=== PATIENT | female | born 1985 | race Caucasian/White ===

== ENCOUNTER 2021-10-18 19:05 | Emergency (ER) | payer OTHER, SELFPAY ==
[2021-10-18 19:10] VITALS: BP 133/85; PULSE 130; RESP 24; TEMP 36.7; O2SAT 100; BMI 15.3
--- NOTE | 2021-10-18 19:21 | EKG12_ITS ---
Test Reason : SEIZURE Blood Pressure : / mmHG Vent. Rate : 084 BPM Atrial Rate : 084 BPM P-R Int : 138 ms QRS Dur : 100 ms QT Int : 372 ms P-R-T Axes : 075 058 075 degrees QTc Int : 439 ms Normal sinus rhythm Low voltage QRS Borderline ECG Confirmed by RIKI LARRY, SHERRY ([id number]), advertising editor ALAN MEIER ([id number]) on 10/21/2021 11:17:08 A M Referred By: JARROD Confirmed By:JEAN-CLAUDE LYN MD
--- NOTE | 2021-10-18 19:26 | EX.ED.DYSGE1 ---
HPI <ARTHUR Chavez - Last Filed: 10/18/21 22:21> History of Present Illness Chief Complaint: Confusion Narrative Narrative: 35-year-old [place] female presents with altered mental status. Her family member states she has had gallbladder and liver problems for the last 2 years. She has been jaundiced intermittently since then and is less yellow right now than previously. Her family thinks it was because she was on some medication that caused damage to her liver. This week she was doing a detox at [facility]. Her caregiver/health health care coach there states when she arrived she was only 85 pounds and she has lost a few pounds this week. She has been taking essential oils and a bunch of supplements. She complained of palpitations last evening and they checked her heart rate and it was 90. Today she seemed fine until around 5 PM when she states she felt lightheaded. She then laid down in bed and became acutely very confused and was rambling and would not answer questions appropriately. [facility] <ARTHUR Chavez - Last Filed: 10/18/21 22:21> [facility] Medical History (Updated 10/18/21 @ 22:29 by ARTHUR Chavez) Anemia Anemia Gall stone Home Medications NK 10/18/21 [History Last Taken Unknown] Allergy/AdvReac Type Severity Reaction Status Date / Time No Known Allergies Allergy Verified 10/18/21 19:36 Social History Smoking Status: Never smoker ROS <ARTHUR Chavez - Last Filed: 10/18/21 22:21> ROS ED ROS Narrative Constitutional: Negative for fever, chills, malaise. Eyes: Negative for visual change. ENT: Negative for sore throat, ear pain, rhinorrhea. CVS: Positive for palpitations. Negative for chest pain, syncope. Respiratory: Negative for shortness of breath, cough, orthopnea. GI: Negative for abdominal pain, nausea, vomiting, diarrhea. : Negative for dysuria. Neuro: Negative for headache, motor/sensory dysfunction. Skin: Negative for rash, abscess, or wound. Musc: Negative for joint pain, swelling, trauma. Heme: Negative for easy bruising, bleeding, lymphadenopathy. EXAM <ARTHUR Chavez - Last Filed: 10/18/21 22:21> Physical Exam Narrative Exam Narrative: CONST: Patient sitting up in bed, keenly alert and agitated. EYES: Pupils 6 mm and equal bilaterally, reactive to light, EOMI. No scleral icterus. ENT: Normal inspection, dry mucous membranes. NECK: Normal inspection. RESP: No respiratory distress, CTAB. CVS: Regular rate and rhythm, no murmur, no gallop. ABD: Soft and nontender, no guarding or rebound, nondistended, no hepatosplenomegaly. SKIN: Jaundiced. EXTREMITIES: Normal appearance, no pedal edema. NEURO: Oriented to self, will not answer other orientation questions although occasionally responds appropriately to the conversation. PSYCH: Normal affect. Const Vital Signs: 10/18/21 19:10 10/18/21 20:05 10/18/21 21:00 Temperature 98.1 F Temperature Source Temporal Pulse Rate 130 H 87 100 Respiratory Rate 24 H 17 16 Blood Pressure 133/85 H 116/71 116/62 Blood Pressure Mean 101 86 80 Pulse Ox 100 99 100 Oxygen Delivery Method Room Air Room Air Room Air 10/18/21 21:48 10/18/21 22:23 Temperature Temperature Source Pulse Rate 81 88 Respiratory Rate 20 H 22 H Blood Pressure 125/87 H 119/78 Blood Pressure Mean 99 Pulse Ox 100 98 Oxygen Delivery Method Room Air <Flex Rea MD - Last Filed: 10/18/21 22:43> Physical Exam Const Vital Signs: 10/18/21 19:10 10/18/21 20:05 10/18/21 21:00 Temperature 98.1 F Temperature Source Temporal Pulse Rate 130 H 87 100 Respiratory Rate 24 H 17 16 Blood Pressure 133/85 H 116/71 116/62 Blood Pressure Mean 101 86 80 Pulse Ox 100 99 100 Oxygen Delivery Method Room Air Room Air Room Air 10/18/21 21:48 10/18/21 22:23 Temperature Temperature Source Pulse Rate 81 88 Respiratory Rate 20 H 22 H Blood Pressure 125/87 H 119/78 Blood Pressure Mean 99 Pulse Ox 100 98 Oxygen Delivery Method Room Air MDM <ARTHUR Chavez - Last Filed: 10/18/21 22:21> [place] MDM Narrative Medical decision making narrative: Patient has been doing a homeopathic detox and presents with altered mental status. She is awake and alert and oriented to self but is otherwise confused. She was tachycardic in the 130s, otherwise normal vital signs. He appears dehydrated with dry mucous membranes. Heart is rapid but regular. Lungs clear. Abdomen soft and nontender. She is not answering appropriately is consistently talking in a episcopal theme. Labs are unremarkable including LFTs and ammonia. UA is negative for infection. Urine drug screen is positive for THC which is consistent with the CBD she was using. Alcohol level is negative. CT brain shows no acute process. Patient was given IV fluids and heart rate improved to the 80s. She does seem improved and is able to sit calmly in bed and talk appropriately. We had a long discussion with the patient and her sister about how there was no medical issue found but we can pursue a psychiatric evaluation as this may be a mental health issue. The family discussed and declined. They feel comfortable taking her back to the wellness retreat. I recommended they do not continue the supplementation and she needs to increase her fluids. They state they will have a rest there few days and then had home to [place]. She was counseled to return for new or worsening issues and was discharged in stable condition. Diagnoses 1. Altered mental status 2. Dehydration Lab Data Labs: Laboratory Results - last 24 hr 10/18/21 10/18/21 10/18/21 19:22 19:22 19:22 WBC 6.1 RBC 4.01 L Hgb 13.1 Hct 39.2 MCV 97.8 MCH 32.7 H MCHC 33.4 RDW Std Deviation 46.0 H RDW Coeff of Ashlie 12.9 Plt Count 264 MPV 10.4 Immature Gran % (Auto) 0.500 Neut % (Auto) 54.4 Lymph % (Auto) 35.2 [place] % (Auto) 8.3 Eos % (Auto) 1.3 Baso % (Auto) 0.3 Absolute Neuts (auto) 3.3 Absolute Lymphs (auto) 2.16 Nucleated RBC % 0 PT 12.0 INR 0.9 Sodium 140 Potassium 3.7 Chloride 105 Carbon Dioxide 27.0 Anion Gap 8 BUN 16 Creatinine 1.08 H Estim Creat Clear Calc 45.67 Est GFR (MDRD) Af Amer 74 Est GFR (MDRD) Non-Af 61 BUN/Creatinine Ratio 14.8 Glucose 160 H Lactic Acid Calcium 9.1 Total Bilirubin 0.50 Direct Bilirubin 0.12 AST 25 ALT 30 Alkaline Phosphatase 49 Ammonia Total Protein 7.5 Albumin 4.0 Globulin 3.5 Urine Color Urine Clarity Urine pH Ur Specific [place] Urine Protein Urine Glucose (UA) Urine Ketones Urine Occult Blood Urine Nitrite Urine Bilirubin Urine Urobilinogen Ur Leukocyte Esterase Urine RBC Urine WBC Ur Squamous Epith Cells Urine Bacteria Urine Mucus Urine Opiates Screen Urine Methadone Screen Ur Barbiturates Screen Ur Phencyclidine Scrn Ur Amphetamines Screen MDMA (Ecstasy) Screen U Benzodiazepines Scrn Urine Cocaine Screen U Cannabinoids Screen Ur Drug Screen Comment Ethyl Alcohol 10/18/21 10/18/21 10/18/21 19:22 19:22 20:30 WBC RBC Hgb Hct MCV MCH MCHC RDW Std Deviation RDW Coeff of Ashlie Plt Count MPV Immature Gran % (Auto) Neut % (Auto) Lymph % (Auto) [place] % (Auto) Eos % (Auto) Baso % (Auto) Absolute Neuts (auto) Absolute Lymphs (auto) Nucleated RBC % PT INR Sodium Potassium Chloride Carbon Dioxide Anion Gap BUN Creatinine Estim Creat Clear Calc Est GFR (MDRD) Af Amer Est GFR (MDRD) Non-Af BUN/Creatinine Ratio Glucose Lactic Acid 0.6 Calcium Total Bilirubin Direct Bilirubin AST ALT Alkaline Phosphatase Ammonia 13.0 Total Protein Albumin Globulin Urine Color Urine Clarity Urine pH Ur Specific [place] Urine Protein Urine Glucose (UA) Urine Ketones Urine Occult Blood Urine Nitrite Urine Bilirubin Urine Urobilinogen Ur Leukocyte Esterase Urine RBC Urine WBC Ur Squamous Epith Cells Urine Bacteria Urine Mucus Urine Opiates Screen Urine Methadone Screen Ur Barbiturates Screen Ur Phencyclidine Scrn Ur Amphetamines Screen MDMA (Ecstasy) Screen U Benzodiazepines Scrn Urine Cocaine Screen U Cannabinoids Screen Ur Drug Screen Comment Ethyl Alcohol < 3.0 10/18/21 10/18/21 20:55 20:55 WBC RBC Hgb Hct MCV MCH MCHC RDW Std Deviation RDW Coeff of Ashlie Plt Count MPV Immature Gran % (Auto) Neut % (Auto) Lymph % (Auto) [place] % (Auto) Eos % (Auto) Baso % (Auto) Absolute Neuts (auto) Absolute Lymphs (auto) Nucleated RBC % PT INR Sodium Potassium Chloride Carbon Dioxide Anion Gap BUN Creatinine Estim Creat Clear Calc Est GFR (MDRD) Af Amer Est GFR (MDRD) Non-Af BUN/Creatinine Ratio Glucose Lactic Acid Calcium Total Bilirubin Direct Bilirubin AST ALT Alkaline Phosphatase Ammonia Total Protein Albumin Globulin Urine Color Yellow Urine Clarity Clear Urine pH 7.0 Ur Specific [place] 1.010 Urine Protein Negative Urine Glucose (UA) Normal Urine Ketones Negative Urine Occult Blood Negative Urine Nitrite Negative Urine Bilirubin Negative Urine Urobilinogen Normal Ur Leukocyte Esterase Negative Urine RBC 0 SEEN Urine WBC 0 SEEN Ur Squamous Epith Cells 0 SEEN Urine Bacteria 0 SEEN Urine Mucus 0 SEEN Urine Opiates Screen NEGATIVE Urine Methadone Screen NEGATIVE Ur Barbiturates Screen NEGATIVE Ur Phencyclidine Scrn NEGATIVE Ur Amphetamines Screen NEGATIVE MDMA (Ecstasy) Screen NEGATIVE U Benzodiazepines Scrn NEGATIVE Urine Cocaine Screen NEGATIVE U Cannabinoids Screen POSITIVE H Ur Drug Screen Comment Ethyl Alcohol Radiography Diagnostic Testing: Clinical Impression(s) from Imaging Studies Brain CT 10/18/21 19:30 IMPRESSION: Normal unenhanced CT scan of the brain. Electronically Signed: Chema Hooker MD at 21:35 EDT , EKG Initial EKG: Attestation: I personally reviewed and interpreted this EKG as follows: Interpretation: Sinus Rhythm Comments: Normal sinus rhythm, low voltage QRS, normal intervals, no acute ischemia <Flex Rea MD - Last Filed: 10/18/21 22:43> MDM MDM Narrative Medical decision making narrative: ATTENDING NOTE: Dr. Rea: The patient was seen in conjunction with the PA-C/nurse practitioner. I performed a history and physical, and agree with the management of this patient. I agree with noted documentation and plan. I discussed the plan of care and final disposition with the physician associate/nurse practitioner. Abnormal behavior. States had spiritual experience. Afebrile. Vital signs noted. Regular rate and rhythm. Lungs clear to auscultation bilaterally. Abdomen soft nontender. Flat affect. Check labs. Check CT brain. Discussed possibility of psychiatric evaluation with family and caregiver. They would like discharge home. [place]. She is not suicidal. I do feel she can be discharged safely home with follow-up. Return instructions were reviewed. Disposition is discharged home in stable condition. Lab Data Attestation: I reviewed the patient's lab results. Labs: Laboratory Results - last 24 hr 10/18/21 10/18/21 10/18/21 19:22 19:22 19:22 WBC 6.1 RBC 4.01 L Hgb 13.1 Hct 39.2 MCV 97.8 MCH 32.7 H MCHC 33.4 RDW Std Deviation 46.0 H RDW Coeff of Ashlie 12.9 Plt Count 264 MPV 10.4 Immature Gran % (Auto) 0.500 Neut % (Auto) 54.4 Lymph % (Auto) 35.2 [place] % (Auto) 8.3 Eos % (Auto) 1.3 Baso % (Auto) 0.3 Absolute Neuts (auto) 3.3 Absolute Lymphs (auto) 2.16 Nucleated RBC % 0 PT 12.0 INR 0.9 Sodium 140 Potassium 3.7 Chloride 105 Carbon Dioxide 27.0 Anion Gap 8 BUN 16 Creatinine 1.08 H Estim Creat Clear Calc 45.67 Est GFR (MDRD) Af Amer 74 Est GFR (MDRD) Non-Af 61 BUN/Creatinine Ratio 14.8 Glucose 160 H Lactic Acid Calcium 9.1 Total Bilirubin 0.50 Direct Bilirubin 0.12 AST 25 ALT 30 Alkaline Phosphatase 49 Ammonia Total Protein 7.5 Albumin 4.0 Globulin 3.5 Urine Color Urine Clarity Urine pH Ur Specific [place] Urine Protein Urine Glucose (UA) Urine Ketones Urine Occult Blood Urine Nitrite Urine Bilirubin Urine Urobilinogen Ur Leukocyte Esterase Urine RBC Urine WBC Ur Squamous Epith Cells Urine Bacteria Urine Mucus Urine Opiates Screen Urine Methadone Screen Ur Barbiturates Screen Ur Phencyclidine Scrn Ur Amphetamines Screen MDMA (Ecstasy) Screen U Benzodiazepines Scrn Urine Cocaine Screen U Cannabinoids Screen Ur Drug Screen Comment Ethyl Alcohol 10/18/21 10/18/21 10/18/21 19:22 19:22 20:30 WBC RBC Hgb Hct MCV MCH MCHC RDW Std Deviation RDW Coeff of Ashlie Plt Count MPV Immature Gran % (Auto) Neut % (Auto) Lymph % (Auto) [place] % (Auto) Eos % (Auto) Baso % (Auto) Absolute Neuts (auto) Absolute Lymphs (auto) Nucleated RBC % PT INR Sodium Potassium Chloride Carbon Dioxide Anion Gap BUN Creatinine Estim Creat Clear Calc Est GFR (MDRD) Af Amer Est GFR (MDRD) Non-Af BUN/Creatinine Ratio Glucose Lactic Acid 0.6 Calcium Total Bilirubin Direct Bilirubin AST ALT Alkaline Phosphatase Ammonia 13.0 Total Protein Albumin Globulin Urine Color Urine Clarity Urine pH Ur Specific [place] Urine Protein Urine Glucose (UA) Urine Ketones Urine Occult Blood Urine Nitrite Urine Bilirubin Urine Urobilinogen Ur Leukocyte Esterase Urine RBC Urine WBC Ur Squamous Epith Cells Urine Bacteria Urine Mucus Urine Opiates Screen Urine Methadone Screen Ur Barbiturates Screen Ur Phencyclidine Scrn Ur Amphetamines Screen MDMA (Ecstasy) Screen U Benzodiazepines Scrn Urine Cocaine Screen U Cannabinoids Screen Ur Drug Screen Comment Ethyl Alcohol < 3.0 10/18/21 10/18/21 20:55 20:55 WBC RBC Hgb Hct MCV MCH MCHC RDW Std Deviation RDW Coeff of Ashlie Plt Count MPV Immature Gran % (Auto) Neut % (Auto) Lymph % (Auto) [place] % (Auto) Eos % (Auto) Baso % (Auto) Absolute Neuts (auto) Absolute Lymphs (auto) Nucleated RBC % PT INR Sodium Potassium Chloride Carbon Dioxide Anion Gap BUN Creatinine Estim Creat Clear Calc Est GFR (MDRD) Af Amer Est GFR (MDRD) Non-Af BUN/Creatinine Ratio Glucose Lactic Acid Calcium Total Bilirubin Direct Bilirubin AST ALT Alkaline Phosphatase Ammonia Total Protein Albumin Globulin Urine Color Yellow Urine Clarity Clear Urine pH 7.0 Ur Specific [place] 1.010 Urine Protein Negative Urine Glucose (UA) Normal Urine Ketones Negative Urine Occult Blood Negative Urine Nitrite Negative Urine Bilirubin Negative Urine Urobilinogen Normal Ur Leukocyte Esterase Negative Urine RBC 0 SEEN Urine WBC 0 SEEN Ur Squamous Epith Cells 0 SEEN Urine Bacteria 0 SEEN Urine Mucus 0 SEEN Urine Opiates Screen NEGATIVE Urine Methadone Screen NEGATIVE Ur Barbiturates Screen NEGATIVE Ur Phencyclidine Scrn NEGATIVE Ur Amphetamines Screen NEGATIVE MDMA (Ecstasy) Screen NEGATIVE U Benzodiazepines Scrn NEGATIVE Urine Cocaine Screen NEGATIVE U Cannabinoids Screen POSITIVE H Ur Drug Screen Comment Ethyl Alcohol Radiography Diagnostic Testing: Clinical Impression(s) from Imaging Studies Brain CT 10/18/21 19:30 IMPRESSION: Normal unenhanced CT scan of the brain. Electronically Signed: Chema Hooker MD at 21:35 EDT , Discharge Plan Triage Chief Complaint: Confusion ED Provider: Merari Parra Dx/Rx/DC Orders Clinical Impression: Acute alteration in mental status, Acute dehydration Instructions: ED Confusion Prescriptions: No Action NK RF: 0 Primary Care Provider: Care Physician,No Primary Referrals: Care Physician,No Primary [Primary Care Provider] - Activity Restrictions/Additional Instructions: Today all of your blood work looked normal. There were no signs of infection. Your urine was positive for THC which is from the CBD oil you have been taking. We did a CAT scan of your brain which appeared normal. We found no medical reason to cause you to be confused today. You were very dehydrated and were given IV fluids. Please keep drinking a lot of fluids at home. I really do not recommend continuing this detox or the supplements you have been on you should rest and come back if you have new or worsening symptoms. Disposition Disposition: Home, Self Care Discharge Date/Time: 10/18/21 22:36
--- NOTE | 2021-10-18 19:30 | CT_ITS ---
STUDY: CT BRAIN WITHOUT CONTRAST REASON FOR EXAM: Female, 35 years old. ams RADIATION DOSAGE (If Supplied By Facility): CTDIvol = ( 44.99 ) mGy, DLP = ( 796.11 ) mGycm TECHNIQUE: Transaxial CT imaging of the brain was performed without administration of intravenous contrast material. Individualized dose optimization techniques were used for this CT. COMPARISON: No relevant priors. FINDINGS: Normal soft tissue structures. Normal calvarium. Normal size ventricles and extra-axial spaces for the patient''s age. Normal white matter tracts of the cerebral hemispheres. Normal basal ganglia and thalami. Normal brainstem. Normal cerebellum. There is no intracranial hemorrhage. There are no findings of an acute ischemic infarction. Normal visualized paranasal sinuses. CT/Brain/Head without Contrast IMPRESSION: Normal unenhanced CT scan of the brain. Electronically Signed: Chema Hooker MD at 21:35 EDT ,
[2021-10-18] MEDS: 0.9% Normal Saline 1,000 ML 1000 ML IV (19:34)
[2021-10-18] MEDS: LORazepam 2 MG/ML Syringe 1 MG IV (19:35)
[2021-10-18 19:54] LABS: Absolute Lymphocyte Count 2.16 X10^3/uL (0.83-4.51); Absolute Neutrophil Count 3.3 X10^3/uL (2.0-7.7); Basophil# 0.02 X10^3/uL; Basophil% 0.3 % (0-1); Eosinophil# 0.08 X10^3/uL; Eosinophils% 1.3 % (0-5); Hematocrit 39.2 % (37-47); Hemoglobin 13.1 g/dL (12.0-15.0); Lymphocyte # 2.16 X10^3/ul (0.83-4.51); Lymphocyte % 35.2 % (19-41); Mean Corp Hgb Conc 33.4 g/dL (32-36); Mean Corpuscular Hgb 32.7 pg (27.0-32.0); Mean Corpuscular Volume 97.8 fL (81-99); Mean Platelet Vol. 10.4 fl (6.2-12.0); Monocyte# 0.51 X10^3/uL; Monocyte% 8.3 % (0-10); NRBC Flagged by Analyzer 0 % (0-5); Neutrophil # 3.33 X10^3/uL (2.7-7.7); Neutrophil % 54.4 % (47-70); Platelet Count 264 K/mm3 (150-450); RBC Distribution Width CV 12.9 % (11.6-14.6); Red Blood Count 4.01 M/mm3 (4.2-5.4); White Blood Count 6.1 K/mm3 (4.4-11.0)
[2021-10-18 20:02] LABS: International Normalized Ratio 0.9
[2021-10-18 20:05] VITALS: BP 116/71; PULSE 87; RESP 17; O2SAT 99
[2021-10-18 20:13] LABS: AST(SGOT) 25 U/L (15-37); Alanine Aminotransfer ALT/SGPT 30 U/L (13-56); Alkaline Phosphatase 49 U/L (45-117); Anion Gap 8 (5-15); BUN 16 mg/dL (7-18); BUN/Creat Ratio 14.8 RATIO (10-20); Bilirubin, Direct 0.12 mg/dL (0.00-0.30); Calcium,Total 9.1 mg/dL (8.5-10.1); Chloride 105 mmol/L (98-107); Creatinine, Serum 1.08 mg/dL (0.55-1.02); EST Glomerular Filtration Rate 61 mL/min (>60); Est Glom Filt Rate - Afr Amer 74 mL/min (>60); Estimated Creatinine Clearance 45.67 ml/min; Globulin 3.5 g/dL (2.2-4.2); Glucose 160 mg/dL (74-106); Potassium 3.7 mmol/L (3.5-5.1); Protein, Total 7.5 g/dL (6.4-8.2); Sodium Level 140 mmol/L (136-145)
[2021-10-18] MEDS: 0.9% Normal Saline 1,000 ML 150 ML IV (20:50)
[2021-10-18 20:51] LABS: Alcohol, Blood (Medical)-Serum < 3.0 mg/dL
[2021-10-18 21:00] VITALS: BP 116/62; PULSE 100; RESP 16; O2SAT 100
[2021-10-18 21:05] LABS: Bacteria 0 SEEN /hpf (None Seen); Mucous, Urine 0 SEEN /hpf (<or=2+); Red Blood Cells-Urine 0 SEEN /hpf (0-5); Squamous Epithelial Cells - UA 0 SEEN /hpf (5-10); White Blood Cells 0 SEEN /hpf (0-5)
[2021-10-18 21:06] LABS: Lactic Acid 0.6 mmol/L (0.4-1.9)
[2021-10-18 21:10] LABS: Color, Urine Yellow (Yellow); Glucose, Dipstick Normal (Normal); Ketone-Dipstick Negative (Negative); Leukocyte Esterase-Dipstick Negative /ul (Negative); Nitrite-Dipstick Negative (Negative); Occult Blood-Urine Negative /ul (Negative); Protein-Dipstick Negative (Negative); Urine Bilirubin Dipstick Negative (Negative); Urine Clarity Clear (Clear); Urine Urobilinogen Normal (Normal)
[2021-10-18 21:26] LABS: Amphetamine Urine VISTA NEGATIVE (<1000 ng/mL); Barbiturate Urine VISTA NEGATIVE (< 200 ng/mL); Benzodiazepine Urine VISTA NEGATIVE (< 200 ng/mL); Cocaine Urine VISTA NEGATIVE (< 300 ng/mL); Ecstacy Urine VISTA NEGATIVE (< 500 ng/mL); Methadone Urine VISTA NEGATIVE (< 300 ng/mL); PCP Urine VISTA NEGATIVE (< 25 ng/mL); THC Urine VISTA POSITIVE (< 50 ng/mL); Vista UDS pH Range 6
[2021-10-18 21:48] VITALS: BP 125/87; PULSE 81; RESP 20; O2SAT 100
[2021-10-18 22:23] VITALS: BP 119/78; PULSE 88; RESP 22; O2SAT 98
== END 2021-10-18 22:36 | disposition home or self-care (01) ==
PROVIDERS: Emergency Provider Physician Assistant; Visit Provider Physician Assistant
DX: R41.82 Altered mental status, unspecified (principal); E86.0 Dehydration; R17 Unspecified jaundice
CPT/HCPCS: 70450; 80048; 80076; 80307; 81001; 82077; 82140; 83605; 85025; 85610; 93005; 96361; 96374; 99285; J7030; A4216